=== PATIENT | female | born 1940 | race Caucasian/White ===

== ENCOUNTER 2021-01-04 16:49 | Inpatient (IN) | payer MEDICARE ==
[2021-01-04] MEDS ORDERED: Cyclobenzaprine 10 MG TAB PO PRN (20:13)
[2021-01-04] MEDS ORDERED: hydrALAZINE 20 MG/ML VIAL SLOW IVP PRN (20:13)
[2021-01-04] MEDS ORDERED: traMADol HCl 50 MG TAB PO PRN (20:13)
[2021-01-04] MEDS ORDERED: Ondansetron ODT 4 MG TAB PO PRN (20:13)
[2021-01-04] MEDS ORDERED: cloNIDine 0.1 MG TAB PO PRN (20:50)
[2021-01-04] MEDS: Acetaminophen 325 MG TAB PO SCH (20:55)
[2021-01-04] MEDS: Enoxaparin Sodium 30 MG/0.3 ML SYRINGE SC SCH (20:56)
[2021-01-04] MEDS: Aspirin 81 mg Enteric Coated Tablet PO SCH (20:56)
[2021-01-04] MEDS: Ibuprofen 200 MG TAB PO SCH (20:56)
[2021-01-05] MEDS: Acetaminophen 325 MG TAB PO SCH ×4 (02:56→21:05)
[2021-01-05] MEDS: Ibuprofen 200 MG TAB PO SCH ×3 (05:45→21:02)
[2021-01-05] MEDS: Aspirin 81 mg Enteric Coated Tablet PO SCH ×2 (09:58→21:01)
[2021-01-05] MEDS: Enoxaparin Sodium 30 MG/0.3 ML SYRINGE SC SCH (20:59)
[2021-01-06] MEDS: Acetaminophen 325 MG TAB PO SCH ×4 (02:59→21:48)
[2021-01-06] MEDS: Ibuprofen 200 MG TAB PO SCH ×3 (05:49→21:44)
[2021-01-06] MEDS: Aspirin 81 mg Enteric Coated Tablet PO SCH ×2 (09:08→21:44)
[2021-01-06] MEDS: Enoxaparin Sodium 30 MG/0.3 ML SYRINGE SC SCH (21:45)
[2021-01-07] MEDS: Acetaminophen 325 MG TAB PO SCH ×4 (05:00→20:32)
[2021-01-07] MEDS: Ibuprofen 200 MG TAB PO SCH ×3 (05:03→21:38)
[2021-01-07] MEDS: Aspirin 81 mg Enteric Coated Tablet PO SCH ×2 (09:14→20:33)
[2021-01-07] MEDS: Enoxaparin Sodium 30 MG/0.3 ML SYRINGE SC SCH (20:32)
[2021-01-08] MEDS: Acetaminophen 325 MG TAB PO SCH ×4 (03:00→20:42)
[2021-01-08] MEDS: Ibuprofen 200 MG TAB PO SCH ×3 (05:39→21:46)
[2021-01-08] MEDS ORDERED: Lidocaine 1% PF 5 ML VIAL ONE (07:04)
[2021-01-08] MEDS: Aspirin 81 mg Enteric Coated Tablet PO SCH ×2 (09:33→20:40)
[2021-01-08] MEDS: Enoxaparin Sodium 30 MG/0.3 ML SYRINGE SC SCH (20:44)
[2021-01-09] MEDS: Acetaminophen 325 MG TAB PO SCH ×4 (02:26→21:22)
[2021-01-09] MEDS: Ibuprofen 200 MG TAB PO SCH ×3 (05:43→21:23)
[2021-01-09] MEDS: Aspirin 81 mg Enteric Coated Tablet PO SCH ×2 (09:07→21:22)
[2021-01-09] MEDS: Enoxaparin Sodium 30 MG/0.3 ML SYRINGE SC SCH (21:23)
[2021-01-10] MEDS: Acetaminophen 325 MG TAB PO SCH ×4 (02:57→21:27)
[2021-01-10] MEDS: Ibuprofen 200 MG TAB PO SCH ×3 (05:28→21:26)
[2021-01-10] MEDS: Aspirin 81 mg Enteric Coated Tablet PO SCH ×2 (09:28→21:26)
[2021-01-10] MEDS: Enoxaparin Sodium 30 MG/0.3 ML SYRINGE SC SCH (21:26)
[2021-01-11] MEDS: Acetaminophen 325 MG TAB PO SCH ×4 (03:14→21:33)
[2021-01-11] MEDS: Ibuprofen 200 MG TAB PO SCH ×3 (05:32→21:32)
[2021-01-11] MEDS: Aspirin 81 mg Enteric Coated Tablet PO SCH ×2 (08:37→21:32)
[2021-01-11] MEDS: Enoxaparin Sodium 30 MG/0.3 ML SYRINGE SC SCH (21:32)
[2021-01-12] MEDS: Acetaminophen 325 MG TAB PO SCH ×4 (04:13→20:55)
[2021-01-12] MEDS: Ibuprofen 200 MG TAB PO SCH ×3 (05:29→20:57)
[2021-01-12 05:31] LABS: Hemoglobin 8.7 g/dL (12.0-16.0); Platelet Count 185 thou/uL (130-400)
[2021-01-12] MEDS: Aspirin 81 mg Enteric Coated Tablet PO SCH ×2 (08:10→20:56)
[2021-01-12] MEDS: Enoxaparin Sodium 30 MG/0.3 ML SYRINGE SC SCH (20:57)
[2021-01-13] MEDS: Acetaminophen 325 MG TAB PO SCH ×4 (03:00→20:51)
[2021-01-13 04:23] VITALS: BMI 19.8
[2021-01-13] MEDS: Ibuprofen 200 MG TAB PO SCH ×3 (06:39→20:50)
[2021-01-13] MEDS: Aspirin 81 mg Enteric Coated Tablet PO SCH ×2 (08:55→20:50)
[2021-01-13] MEDS: Enoxaparin Sodium 30 MG/0.3 ML SYRINGE SC SCH (20:51)
[2021-01-14] MEDS: Acetaminophen 325 MG TAB PO SCH ×4 (03:10→21:07)
[2021-01-14] MEDS: Ibuprofen 200 MG TAB PO SCH ×3 (05:25→21:07)
[2021-01-14 06:00] LABS: Hemoglobin 9.2 g/dL (12.0-16.0); Platelet Count 210 thou/uL (130-400)
[2021-01-14] MEDS: Aspirin 81 mg Enteric Coated Tablet PO SCH ×2 (08:26→21:07)
[2021-01-14] MEDS: Enoxaparin Sodium 30 MG/0.3 ML SYRINGE SC SCH (21:08)
[2021-01-15] MEDS: Acetaminophen 325 MG TAB PO SCH ×4 (03:36→21:28)
[2021-01-15] MEDS: Ibuprofen 200 MG TAB PO SCH ×3 (05:52→21:28)
[2021-01-15] MEDS: Aspirin 81 mg Enteric Coated Tablet PO SCH ×2 (08:26→21:29)
[2021-01-15] MEDS: Enoxaparin Sodium 30 MG/0.3 ML SYRINGE SC SCH (21:29)
[2021-01-16] MEDS: Acetaminophen 325 MG TAB PO SCH ×4 (03:59→20:37)
[2021-01-16] MEDS: Ibuprofen 200 MG TAB PO SCH ×3 (05:22→20:38)
[2021-01-16 05:41] LABS: Hemoglobin 10.1 g/dL (12.0-16.0); Platelet Count 195 thou/uL (130-400)
[2021-01-16] MEDS: Aspirin 81 mg Enteric Coated Tablet PO SCH ×2 (09:30→20:37)
[2021-01-16] MEDS: Enoxaparin Sodium 30 MG/0.3 ML SYRINGE SC SCH (20:37)
[2021-01-17] MEDS: Acetaminophen 325 MG TAB PO SCH ×2 (03:38→09:01)
[2021-01-17 05:21] LABS: #Basophils 0.1 thou/uL (0.0-0.2); #Eosinphils 0.2 thou/uL (0.0-0.7); #Lymphocytes 0.7 thou/uL (1.20-3.40); #Monocytes 0.5 thou/uL (0.11-0.59); #Neutrophils 3.5 thou/uL (1.40-6.50); %Basophils 1.7 % (0.0-1.0); %Eosinophils 4.8 % (0.0-10.0); %Lymphocytes 13.6 % (21.0-51.0); %Monocytes 9.7 % (0.0-10.0); %Neutrophils 70.1 % (42.0-75.0); Hemoglobin 10.4 g/dL (12.0-16.0); Mean Corpuscular HGB CONC 32.1 g/dL (32.0-36.0); Mean Corpuscular Hemoglobin 33.2 pg (27.0-31.0); Mean Platelet Volume 6.7 fL (7.4-10.4); Platelet Count 206 thou/uL (130-400); RBC Distribution Width 17.3 % (11.5-14.5); Red Blood Cell (RBC) Count 3.13 mill/uL (4.20-5.40)
[2021-01-17] MEDS: Ibuprofen 200 MG TAB PO SCH (05:28)
[2021-01-17 06:09] VITALS: BP 164/77; TEMP 98.6
[2021-01-17] MEDS: Aspirin 81 mg Enteric Coated Tablet PO SCH (09:01)
== END 2021-01-17 13:55 | disposition home health service (06) | DRG 561 ==
LOC: BURMED 18:58
PROVIDERS: ADMIT Family Medicine; ATTEND Family Medicine
DX: S72.141D Displaced intertrochanteric fracture of right femur, subsequent encounter for closed fracture with routine healing (principal); R26.81 Unsteadiness on feet; D64.9 Anemia, unspecified; W19.XXXD Unspecified fall, subsequent encounter; Z88.0 Allergy status to penicillin; Z90.49 Acquired absence of other specified parts of digestive tract; Z87.891 Personal history of nicotine dependence
CPT/HCPCS: 36415; 82565; 85014; 85018; 85025; 85049; J1650

== ENCOUNTER 2023-07-05 10:35 | Emergency (ER) | payer MEDICARE | END 2023-07-05 11:50 | disposition home or self-care (01) | LOC: BURERS 10:35 | DX: I10 Essential (primary) hypertension (principal); Z87.891 Personal history of nicotine dependence | CPT/HCPCS: 99283 ==

== ENCOUNTER 2023-07-12 14:33 | Inpatient (IN) | payer MEDICARE ==
[2023-07-12] MEDS ORDERED: Ondansetron ODT 4 MG TAB PO PRN (20:15)
[2023-07-12] MEDS ORDERED: Senokot 8.6 MG TAB PO PRN (20:15)
[2023-07-12] MEDS: Famotidine 20 MG TAB PO SCH (21:45)
[2023-07-12] MEDS: Aspirin 81 mg Enteric Coated Tablet PO SCH (21:47)
[2023-07-12] MEDS: CeleCOXIB 100 MG CAP PO SCH (21:47)
[2023-07-12] MEDS: Acetaminophen 325 MG TAB PO SCH (23:53)
[2023-07-13] MEDS: Acetaminophen 325 MG TAB PO SCH ×4 (05:11→23:50)
[2023-07-13] MEDS: Aspirin 81 mg Enteric Coated Tablet PO SCH ×2 (09:59→20:39)
[2023-07-13] MEDS: Famotidine 20 MG TAB PO SCH ×2 (10:00→20:39)
[2023-07-13] MEDS: Atenolol 50 MG TAB PO SCH (10:00)
[2023-07-13] MEDS: CeleCOXIB 100 MG CAP PO SCH ×3 (10:07→20:39)
[2023-07-13 11:06] VITALS: BMI 17.6
[2023-07-14] MEDS: Acetaminophen 325 MG TAB PO SCH ×3 (06:07→21:53)
[2023-07-14] MEDS: CeleCOXIB 100 MG CAP PO SCH ×2 (10:30→21:02)
[2023-07-14] MEDS: Famotidine 20 MG TAB PO SCH ×2 (10:31→21:02)
[2023-07-14] MEDS: Aspirin 81 mg Enteric Coated Tablet PO SCH ×2 (10:31→21:02)
[2023-07-14] MEDS: Atenolol 50 MG TAB PO SCH (10:32)
[2023-07-14] MEDS: Proctozone-HC 30 GM TUBE TOP SCH (10:34)
[2023-07-15] MEDS: Acetaminophen 325 MG TAB PO SCH ×4 (01:00→17:45)
[2023-07-15] MEDS: Famotidine 20 MG TAB PO SCH ×2 (09:14→20:48)
[2023-07-15] MEDS: CeleCOXIB 100 MG CAP PO SCH ×2 (09:14→20:48)
[2023-07-15] MEDS: Aspirin 81 mg Enteric Coated Tablet PO SCH ×2 (09:14→20:48)
[2023-07-15] MEDS: Atenolol 50 MG TAB PO SCH (09:15)
[2023-07-15] MEDS: Proctozone-HC 30 GM TUBE TOP SCH (09:17)
[2023-07-16] MEDS: Acetaminophen 325 MG TAB PO SCH ×4 (00:36→17:20)
[2023-07-16] MEDS: Aspirin 81 mg Enteric Coated Tablet PO SCH ×2 (09:04→21:32)
[2023-07-16] MEDS: CeleCOXIB 100 MG CAP PO SCH ×2 (09:04→21:30)
[2023-07-16] MEDS: Famotidine 20 MG TAB PO SCH ×2 (09:05→21:32)
[2023-07-16] MEDS: Atenolol 50 MG TAB PO SCH (09:05)
[2023-07-16] MEDS: Proctozone-HC 30 GM TUBE TOP SCH (09:08)
[2023-07-17] MEDS: Acetaminophen 325 MG TAB PO SCH ×5 (01:08→23:14)
[2023-07-17] MEDS: CeleCOXIB 100 MG CAP PO SCH ×2 (09:17→21:21)
[2023-07-17] MEDS: Atenolol 50 MG TAB PO SCH (09:18)
[2023-07-17] MEDS: Famotidine 20 MG TAB PO SCH ×2 (09:19→21:21)
[2023-07-17] MEDS: Proctozone-HC 30 GM TUBE TOP SCH (09:19)
[2023-07-17] MEDS: Aspirin 81 mg Enteric Coated Tablet PO SCH ×2 (09:19→21:21)
[2023-07-18] MEDS: Acetaminophen 325 MG TAB PO SCH ×3 (05:12→17:12)
[2023-07-18] MEDS: CeleCOXIB 100 MG CAP PO SCH ×2 (08:47→21:21)
[2023-07-18] MEDS: Atenolol 50 MG TAB PO SCH (08:48)
[2023-07-18] MEDS: Famotidine 20 MG TAB PO SCH ×2 (08:51→21:20)
[2023-07-18] MEDS: Aspirin 81 mg Enteric Coated Tablet PO SCH ×2 (08:51→21:21)
[2023-07-18] MEDS: Proctozone-HC 30 GM TUBE TOP SCH (08:55)
[2023-07-19] MEDS: Acetaminophen 325 MG TAB PO SCH ×4 (01:09→17:06)
[2023-07-19] MEDS ORDERED: Acetaminophen 325 MG TAB ONE (05:10)
[2023-07-19] MEDS: Aspirin 81 mg Enteric Coated Tablet PO SCH ×2 (09:07→20:46)
[2023-07-19] MEDS: CeleCOXIB 100 MG CAP PO SCH ×2 (09:07→20:45)
[2023-07-19] MEDS: Famotidine 20 MG TAB PO SCH ×2 (09:07→20:46)
[2023-07-19] MEDS: Atenolol 50 MG TAB PO SCH (09:08)
[2023-07-19] MEDS: Proctozone-HC 30 GM TUBE TOP SCH (09:20)
[2023-07-20] MEDS: Acetaminophen 325 MG TAB PO SCH ×4 (00:51→17:13)
[2023-07-20] MEDS: CeleCOXIB 100 MG CAP PO SCH ×2 (09:10→20:57)
[2023-07-20] MEDS: Aspirin 81 mg Enteric Coated Tablet PO SCH ×2 (09:10→20:58)
[2023-07-20] MEDS: Famotidine 20 MG TAB PO SCH ×2 (09:10→20:57)
[2023-07-20] MEDS: Atenolol 50 MG TAB PO SCH (09:11)
[2023-07-20] MEDS: Proctozone-HC 30 GM TUBE TOP SCH (09:15)
[2023-07-20] MEDS: traMADol HCl 50 MG TAB PO PRN (14:55)
[2023-07-21] MEDS: Acetaminophen 325 MG TAB PO SCH ×6 (01:15→22:54)
[2023-07-21] MEDS: Famotidine 20 MG TAB PO SCH ×2 (09:11→21:03)
[2023-07-21] MEDS: Atenolol 50 MG TAB PO SCH (09:12)
[2023-07-21] MEDS: Aspirin 81 mg Enteric Coated Tablet PO SCH ×2 (09:13→21:02)
[2023-07-21] MEDS: CeleCOXIB 100 MG CAP PO SCH ×2 (09:13→21:03)
[2023-07-21] MEDS: Proctozone-HC 30 GM TUBE TOP SCH (09:16)
[2023-07-22] MEDS: Acetaminophen 325 MG TAB PO SCH ×3 (05:04→17:27)
[2023-07-22] MEDS: Famotidine 20 MG TAB PO SCH ×2 (09:38→20:47)
[2023-07-22] MEDS: CeleCOXIB 100 MG CAP PO SCH ×2 (09:38→20:47)
[2023-07-22] MEDS: Atenolol 50 MG TAB PO SCH (09:39)
[2023-07-22] MEDS: Aspirin 81 mg Enteric Coated Tablet PO SCH ×2 (09:41→20:47)
[2023-07-22] MEDS: Proctozone-HC 30 GM TUBE TOP SCH (09:42)
[2023-07-23] MEDS: Acetaminophen 325 MG TAB PO SCH ×5 (00:27→23:56)
[2023-07-23] MEDS: Atenolol 50 MG TAB PO SCH (09:17)
[2023-07-23] MEDS: Aspirin 81 mg Enteric Coated Tablet PO SCH ×2 (09:17→20:41)
[2023-07-23] MEDS: Famotidine 20 MG TAB PO SCH ×2 (09:20→20:41)
[2023-07-23] MEDS: CeleCOXIB 100 MG CAP PO SCH ×2 (09:20→20:41)
[2023-07-23] MEDS: traMADol HCl 50 MG TAB PO PRN (09:21)
[2023-07-23] MEDS: Proctozone-HC 30 GM TUBE TOP SCH (09:23)
[2023-07-24] MEDS: Acetaminophen 325 MG TAB PO SCH ×3 (05:43→17:28)
[2023-07-24] MEDS: CeleCOXIB 100 MG CAP PO SCH ×2 (09:39→21:07)
[2023-07-24] MEDS: Atenolol 50 MG TAB PO SCH (09:40)
[2023-07-24] MEDS: Famotidine 20 MG TAB PO SCH ×2 (09:40→21:08)
[2023-07-24] MEDS: Aspirin 81 mg Enteric Coated Tablet PO SCH ×2 (09:41→21:08)
[2023-07-24] MEDS: Proctozone-HC 30 GM TUBE TOP SCH (09:42)
[2023-07-25] MEDS: Acetaminophen 325 MG TAB PO SCH ×4 (00:08→19:56)
[2023-07-25] MEDS: Aspirin 81 mg Enteric Coated Tablet PO SCH ×2 (08:59→21:01)
[2023-07-25] MEDS: CeleCOXIB 100 MG CAP PO SCH ×2 (09:00→21:01)
[2023-07-25] MEDS: Famotidine 20 MG TAB PO SCH ×2 (09:01→21:01)
[2023-07-25] MEDS: Atenolol 50 MG TAB PO SCH (09:01)
[2023-07-25] MEDS: Proctozone-HC 30 GM TUBE TOP SCH (09:03)
[2023-07-25] MEDS: traMADol HCl 50 MG TAB PO PRN (16:51)
[2023-07-26] MEDS: Acetaminophen 325 MG TAB PO SCH ×4 (03:00→17:50)
[2023-07-26] MEDS: CeleCOXIB 100 MG CAP PO SCH ×2 (09:02→20:14)
[2023-07-26] MEDS: Atenolol 50 MG TAB PO SCH (09:02)
[2023-07-26] MEDS: Famotidine 20 MG TAB PO SCH ×2 (09:02→20:14)
[2023-07-26] MEDS: Aspirin 81 mg Enteric Coated Tablet PO SCH ×2 (09:02→20:14)
[2023-07-26] MEDS: Proctozone-HC 30 GM TUBE TOP SCH (09:54)
[2023-07-26] MEDS: traMADol HCl 50 MG TAB PO PRN (15:00)
[2023-07-27] MEDS: Acetaminophen 325 MG TAB PO SCH ×4 (05:02→17:10)
[2023-07-27] MEDS: Famotidine 20 MG TAB PO SCH ×2 (09:18→20:24)
[2023-07-27] MEDS: Proctozone-HC 30 GM TUBE TOP SCH (09:18)
[2023-07-27] MEDS: CeleCOXIB 100 MG CAP PO SCH ×2 (09:18→20:25)
[2023-07-27] MEDS: Aspirin 81 mg Enteric Coated Tablet PO SCH ×2 (09:18→20:24)
[2023-07-27] MEDS: Atenolol 50 MG TAB PO SCH (09:19)
[2023-07-27] MEDS: traMADol HCl 50 MG TAB PO PRN (16:25)
[2023-07-28] MEDS: Acetaminophen 325 MG TAB PO SCH ×5 (05:27→23:17)
[2023-07-28] MEDS: Atenolol 50 MG TAB PO SCH (09:13)
[2023-07-28] MEDS: CeleCOXIB 100 MG CAP PO SCH ×2 (09:14→23:15)
[2023-07-28] MEDS: Aspirin 81 mg Enteric Coated Tablet PO SCH ×2 (09:15→23:15)
[2023-07-28] MEDS: Famotidine 20 MG TAB PO SCH ×2 (09:16→23:15)
[2023-07-28] MEDS: Proctozone-HC 30 GM TUBE TOP SCH (09:28)
[2023-07-29] MEDS: Acetaminophen 325 MG TAB PO SCH (05:16)
[2023-07-29 05:49] VITALS: TEMP 97.3
[2023-07-29] MEDS: CeleCOXIB 100 MG CAP PO SCH (09:05)
[2023-07-29] MEDS: Famotidine 20 MG TAB PO SCH (09:05)
[2023-07-29] MEDS: Atenolol 50 MG TAB PO SCH (09:06)
[2023-07-29] MEDS: Aspirin 81 mg Enteric Coated Tablet PO SCH (09:06)
[2023-07-29 09:09] VITALS: BP 105/56
[2023-07-29] MEDS: Proctozone-HC 30 GM TUBE TOP SCH (09:09)
== END 2023-07-29 11:30 | DRG 93 ==
LOC: BURMED 17:54
PROVIDERS: ADMIT Family Medicine; ATTEND Family Medicine
DX: R26.89 Other abnormalities of gait and mobility (principal); S72.142D Displaced intertrochanteric fracture of left femur, subsequent encounter for closed fracture with routine healing; I10 Essential (primary) hypertension; G25.0 Essential tremor

== ENCOUNTER 2024-01-28 11:37 | Emergency (ER) | payer MEDICARE, OTHER ==
[2024-01-28 12:38] LABS: #Basophils 0.1 thou/uL (0.0-0.2); #Eosinphils 0.3 thou/uL (0.0-0.7); #Lymphocytes 0.8 thou/uL (1.20-3.40); #Monocytes 0.5 thou/uL (0.11-0.59); %Basophils 0.7 % (0.0-1.0); %Eosinophils 2.5 % (0.0-10.0); %Lymphocytes 7.3 % (21.0-51.0); %Monocytes 4.8 % (0.0-10.0); %Neutrophils 84.6 % (42.0-75.0); Hematocrit 45.6 % (36.0-47.0); Hemoglobin 15.2 g/dL (12.0-16.0); Mean Corpuscular HGB CONC 33.4 g/dL (32.0-36.0); Mean Corpuscular Hemoglobin 29.7 pg (27.0-31.0); Mean Corpuscular Volume 88.9 fl (78.0-98.0); Mean Platelet Volume 6.9 fL (7.4-10.4); Platelet Count 161 10x3/uL (130-400); RBC Distribution Width 12.4 % (11.5-14.5); Red Blood Cell (RBC) Count 5.12 mill/uL (4.20-5.40); White Blood Cell (WBC) Count 10.6 10x3/uL (4.8-10.8)
[2024-01-28 12:50] LABS: INR-International Normal Ratio 1.1; Prothrombin Time 13.7 sec (12.0-14.7)
[2024-01-28 12:55] LABS: ALT (SGPT) 18 U/L (8-55); AST (SGOT) 24 U/L (5-34); Albumin 4.1 g/dL (3.4-4.8); Alkaline Phosphatase 81 U/L (40-110); Anion Gap 14 mmol/L (10-20); BUN (Urea Nitrogen) 16 mg/dL (9.8-20.1); Bilirubin, Total 0.5 mg/dL (0.2-1.2); Calc. Creatinine Clearance 0 mL/min (70-130); Calcium 9.1 mg/dL (7.8-10.44); Carbon Dioxide 25 mmol/L (23-31); Chloride 106 mmol/L (98-107); Estimated GFR 64; Globulin 2.5 g/dL (2.4-3.5); Glucose 93 mg/dL (83-110); Potassium 3.9 mmol/L (3.5-5.1); Protein, Total 6.6 g/dL (5.8-8.1); Sodium 141 mmol/L (136-145)
[2024-01-28 13:25] LABS: Bilirubin Negative (Negative); Blood, Urine Trace (Negative); Clarity Clear (Clear); Glucose, Urine (Dipstick) Negative (Negative); Ketone, Urine Negative (Negative); Leukocyte Negative (Negative); Nitrite Negative (Negative); Protein, Urine (Dipstick) Negative (Neg-Trace); Urobilinogen 0.2 mg/dL (Less than 2); pH, Urine 6.5 (5.0-9.0)
[2024-01-28 13:36] LABS: Bacteria/HPF None Seen HPF (None Seen); CAUTI Indications for Culture Dysuria,urgency,freq; RBC/HPF 0-3 HPF (0-3); Squamous Epithelial 0-3 HPF (0-3); WBC/HPF None Seen HPF (0-3)
[2024-01-28 13:37] LABS: Urine Culture Reflex No No
[2024-01-28] MEDS ORDERED: Morphine 4 MG/ML VIAL ONE (15:00)
[2024-01-28] MEDS ORDERED: Ondansetron PF 4 MG/2 ML Vial ONE (15:06)
== END 2024-01-28 16:30 | disposition short-term general hospital (02) ==
LOC: BURERS 11:37
DX: S32.119A Unspecified Zone I fracture of sacrum, initial encounter for closed fracture (principal); S32.511A Fracture of superior rim of right pubis, initial encounter for closed fracture; S50.311A Abrasion of right elbow, initial encounter; I10 Essential (primary) hypertension; W06.XXXA Fall from bed, initial encounter; Z79.82 Long term (current) use of aspirin; Z79.899 Other long term (current) drug therapy
CPT/HCPCS: 72192; 80053; 81001; 85025; 85610; 96374; 96375; 99285; J2270; J2405; 36415

== ENCOUNTER 2024-02-03 14:41 | Inpatient (IN) | payer MEDICARE ==
[2024-02-03] MEDS ORDERED: Guaifenesin DM 100-10/5 ML UDCUP PO PRN (17:24)
[2024-02-03] MEDS ORDERED: Non-Formulary Item 1 EACH (Acetaminophen [Tylenol] 325 MG Capsule) PO PRN (17:30)
[2024-02-03 21:27] VITALS: BMI 19.3
[2024-02-03] MEDS: Senokot S 8.6-50 MG TAB PO PRN (21:33)
[2024-02-03] MEDS: Enoxaparin 30 MG (0.3 mL) SYRINGE SC SCH (21:33)
[2024-02-03] MEDS: Metoprolol Tartrate 25 MG TAB PO SCH (21:34)
[2024-02-03] MEDS: Aspirin 81 mg Enteric Coated Tablet PO SCH (21:34)
[2024-02-04] MEDS ORDERED: Enoxaparin 30 MG (0.3 mL) SYRINGE SC SCH (00:45)
[2024-02-04] MEDS: Losartan 25 MG TAB PO SCH (10:12)
[2024-02-04] MEDS: Pantoprazole DR 40 MG TAB PO SCH (10:13)
[2024-02-04 12:16] VITALS: BMI 19.3
[2024-02-04] MEDS: Enoxaparin 30 MG (0.3 mL) SYRINGE SC SCH (21:36)
[2024-02-04] MEDS: Acetaminophen 325 MG TAB PO PRN (21:38)
[2024-02-05] MEDS: traMADol HCl 50 MG TAB PO PRN (09:50)
[2024-02-08] MEDS: Enoxaparin 40 MG (0.4 mL) SYRINGE SC SCH (21:11)
[2024-02-12] MEDS: Ondansetron ODT 4 MG TAB PO PRN (09:46)
[2024-02-13 05:47] LABS: Hematocrit 36.4 % (36.0-47.0); Hemoglobin 12.7 g/dL (12.0-16.0); Platelet Count 233 10x3/uL (130-400)
[2024-02-13] MEDS: cloNIDine 0.1 MG TAB PO PRN (06:36)
[2024-02-13] MEDS: Acetaminophen 325 MG TAB PO SCH (17:43)
[2024-02-14 12:19] LABS: Bilirubin Negative (Negative); Blood, Urine Negative (Negative); Clarity Clear (Clear); Glucose, Urine (Dipstick) Negative (Negative); Ketone, Urine Negative (Negative); Leukocyte Negative (Negative); Nitrite Negative (Negative); Protein, Urine (Dipstick) Negative (Neg-Trace); Urobilinogen 0.2 mg/dL (Less than 2); pH, Urine 6.5 (5.0-9.0)
[2024-02-14 12:28] LABS: Bacteria/HPF None Seen HPF (None Seen); CAUTI Indications for Culture Pelvic or flank pain; RBC/HPF None Seen HPF (0-3); Squamous Epithelial None Seen HPF (0-3); WBC/HPF None Seen HPF (0-3)
[2024-02-14 12:29] LABS: Urine Culture Reflex No No
[2024-02-16] MEDS: Metoprolol Tartrate 50 MG TAB PO SCH (22:21)
[2024-02-26 10:27] LABS: Bilirubin Negative (Negative); Blood, Urine Small (Negative); Clarity Slightly Cloudy (Clear); Glucose, Urine (Dipstick) Negative (Negative); Ketone, Urine Negative (Negative); Leukocyte Large (Negative); Nitrite Negative (Negative); Protein, Urine (Dipstick) Trace mg/dL (Neg-Trace); Specific Gravity, Urine 1.015 (1.005-1.030); Urobilinogen 0.2 mg/dL (Less than 2); pH, Urine 6.5 (5.0-9.0)
[2024-02-26 10:34] LABS: Bacteria/HPF 2+ HPF (None Seen); WBC/HPF 21-50 HPF (0-3)
[2024-02-27] MEDS: Sulfameth/Trimethoprim DS 800-160mg TAB PO SCH (09:15)
[2024-02-28 05:42] LABS: Anion Gap 15 mmol/L (10-20); BUN (Urea Nitrogen) 19 mg/dL (9.8-20.1); Calc. Creatinine Clearance 37 mL/min (70-130); Calcium 9.3 mg/dL (7.8-10.44); Carbon Dioxide 23 mmol/L (23-31); Chloride 103 mmol/L (98-107); Estimated GFR 55; Glucose 91 mg/dL (83-110); Potassium 4.5 mmol/L (3.5-5.1); Sodium 136 mmol/L (136-145)
[2024-02-28 06:26] LABS: #Basophils 0.1 thou/uL (0.0-0.2); #Eosinphils 0.4 thou/uL (0.0-0.7); #Lymphocytes 1.1 thou/uL (1.20-3.40); #Monocytes 0.5 thou/uL (0.11-0.59); #Neutrophils 3.9 thou/uL (1.40-6.50); %Basophils 1.2 % (0.0-1.0); %Eosinophils 6.5 % (0.0-10.0); %Lymphocytes 18.9 % (21.0-51.0); %Monocytes 7.6 % (0.0-10.0); %Neutrophils 65.7 % (42.0-75.0); Hemoglobin 13.4 g/dL (12.0-16.0); Mean Corpuscular HGB CONC 33.6 g/dL (32.0-36.0); Mean Corpuscular Volume 89.5 fl (78.0-98.0); Mean Platelet Volume 6.1 fL (7.4-10.4); Platelet Count 228 10x3/uL (130-400); RBC Distribution Width 12.4 % (11.5-14.5); Red Blood Cell (RBC) Count 4.48 mill/uL (4.20-5.40); White Blood Cell (WBC) Count 5.9 10x3/uL (4.8-10.8)
[2024-03-02 04:41] VITALS: BP 144/76; TEMP 97.8
== END 2024-03-02 12:11 | DRG 948 ==
LOC: BURMED 19:20
PROVIDERS: ADMIT Family Medicine; ATTEND Family Medicine
DX: R53.81 Other malaise (principal); E87.1 Hypo-osmolality and hyponatremia; N39.0 Urinary tract infection, site not specified; E83.39 Other disorders of phosphorus metabolism; R26.89 Other abnormalities of gait and mobility; I48.0 Paroxysmal atrial fibrillation; I10 Essential (primary) hypertension; B96.20 Unspecified Escherichia coli [E. coli] as the cause of diseases classified elsewhere; Z88.0 Allergy status to penicillin
CPT/HCPCS: 36415; 72192; 80048; 81001; 81003; 81015; 82565; 85014; 85018; 85025; 85049; 87077; 87086; 87186; J1650; Q0162

== ENCOUNTER 2024-04-26 09:55 | Outpatient (CLI) | payer MEDICARE ==
[2024-04-26 10:45] LABS: Bilirubin Negative (Negative); Blood, Urine Negative (Negative); Clarity Clear (Clear); Glucose, Urine (Dipstick) Negative (Negative); Ketone, Urine Negative (Negative); Leukocyte Small (Negative); Nitrite Negative (Negative); Protein, Urine (Dipstick) Negative (Neg-Trace); Urobilinogen 0.2 mg/dL (Less than 2)
== END 2024-04-26 09:56 | disposition home or self-care (01) ==
LOC: BURCT 09:55
PROVIDERS: ATTEND Family Medicine
DX: F03.90 Unspecified dementia, unspecified severity, without behavioral disturbance, psychotic disturbance, mood disturbance, and anxiety (principal); G62.9 Polyneuropathy, unspecified; D53.9 Nutritional anemia, unspecified; R39.89 Other symptoms and signs involving the genitourinary system; R90.89 Other abnormal findings on diagnostic imaging of central nervous system
CPT/HCPCS: 36415; 70450; 81003; 82607; 82746